=== PATIENT | female | born 1980 | race Two or more races ===

== ENCOUNTER → 2022-01-14 08:10 | Outpatient (CLI) | payer OTHER, SELFPAY ==
--- NOTE | 2022-01-14 08:21 | MM_ITS ---
PROCEDURE INFORMATION: Exam: MG Bilateral Screening 3D Mammography Exam date and time: 01/14/2022 8:27 AM Age: 41 years old Clinical indication: Baseline screening mammogram TECHNIQUE: Imaging protocol: Bilateral Screening tomosynthesis and 2D mammography including computer-aided detection (CAD) when performed. COMPARISON: No relevant prior studies available. FINDINGS: MAMMOGRAPHY: Breast composition: The breast is heterogeneously dense, which may obscure small masses. Mass: None. Architectural distortion: No new or suspicious architectural distortion. Calcifications: No new or suspicious calcifications are present Asymmetric density: No new or suspicious asymmetric density is present Skin thickening: None. Axillary adenopathy: None. IMPRESSION: No mammographic evidence of malignancy. Recommend annual screening mammography unless otherwise clinically indicated. ASSESSMENT: BI-RADS category 1: Negative
--- NOTE | 2022-01-14 08:22 | US_ITS ---
FINAL REPORT CLINICAL HISTORY: ELEVATED EFT FINDINGS: Sonographic images of the right upper quadrant were obtained. The pancreas is partially obscured.The liver has an unremarkable appearance. The patient is status post cholecystectomy. The common duct measures 7mm, may represent post cholecystectomy change. Limited images of the right kidney are unremarkable. IMPRESSION: Common duct measures 7 mm, may represent post cholecystectomy change. Reviewed, Interpreted and Dictated by Sriram Rod III, MD Transcribed by Jenae Yusuf Authenticated and [facility]
== END ==
PROVIDERS: PCP Nurse Practitioner Family; Visit Provider Nurse Practitioner Family
DX: Z12.31 Encounter for screening mammogram for malignant neoplasm of breast (principal); R74.8 Abnormal levels of other serum enzymes
CPT/HCPCS: 76705; 77063; 77067

== ENCOUNTER 2022-07-05 17:38 | Emergency (ER) | payer SELFPAY ==
[2022-07-05 17:38] VITALS: BP 131/80; PULSE 84; RESP 18; TEMP 37; O2SAT 99; BMI 41.5
--- NOTE | 2022-07-05 17:45 | ECG_ITS ---
APPROVED REPORT Exam: Resting ECG HR:79 bpm ECG Measurements Heart Rate 79 AXES OH 148 P 39 QRSd 93 QRS 47 QT 341 T 20 QTc 376 Conclusion SINUS RHYTHM NORMAL ECG UNCONFIRMED REPORT Electronically signed by : Dusty Nelson MD 07/06/2022 12:52:59
--- NOTE | 2022-07-05 17:45 | XR_ITS ---
PROCEDURE INFORMATION: Exam: XR Chest Exam date and time: 07/05/2022 6:10 PM Age: 42 years old Clinical indication: Pain; Angina pectoris; Additional info: Chest pain TECHNIQUE: Imaging protocol: Radiologic exam of the chest. Views: 1 view. COMPARISON: No relevant prior studies available. FINDINGS: Lungs: Unremarkable. No consolidation. Pleural spaces: Unremarkable. No pleural effusion. No pneumothorax. Heart/Mediastinum: Unremarkable. No cardiomegaly. Bones/joints: Unremarkable. IMPRESSION: No acute findings.
--- NOTE | 2022-07-05 17:45 | [facility].EDCP ---
Discharge Plan Disposition Chief Complaint: Chest Pain Referrals Follow up/Referrals: Cally Bansal APRN [Primary Care Provider] - See instructions Activity Restrictions/Add. Instructions Additional Instructions/Restrictions: Your work-up today in the emergency department did not show any dangerous abnormalities. I believe that your chest pain is due to costochondritis. This will improve on its own. However if you take ibuprofen you may improve faster. There is no evidence of heart attack today. There is no evidence of blood clot today. Your palpitations are secondary to something called PVC. These are not dangerous. I believe that if you reduce your caffeine intake you may have fewer PVCs. Please follow-up with your primary care doctor in about 2 to 3 days. Return to the emergency department immediately if you feel worse in any way. Clinical Impressions Clinical Impression: Acute costochondritis, Premature ventricular contraction, Atypical chest pain Instructions Patient Instructions: DI for Atypical Chest Pain, DI for Costochondritis Discharge ED Provider: Wilian Burnett Chest Pain HPI General Chief Complaint: Chest Pain Stated Complaint: CP Time Seen by Provider: 07/05/22 17:40 Mode of Arrival: Family Vehicle Source of Information: Patient History of Present Illness HPI narrative: The patient presents to the emergency department complaining of a 2-day history of constant chest pain. She also mentions some intermittent palpitations (skipped heartbeats). She admits to drinking coffee. She denies any radiation of the chest pain. She denies diaphoresis. She denies shortness of breath. MD complaint: chest pain YOAV Score for Non-Stemi Age of Patient: 40-49 years old Heart Rate: 70-89 bpm Systolic Blood Pressure: 120-139 mmhg Serum Creatinine: 0.40-0.79 mg/dl CHF Killip Class: I-No CHF Other Risk Factors: None Non-Stemi Risk Score: 72 Related Data Allergies Allergy/AdvReac Type Severity Reaction Status Date / Time INGREDIENT: NO KNOWN - NO Allergy Unknown Uncoded 03/03/17 15:05 KNOWN DRUG ALLERGY [facility] Disclaimer: The information contained in this section may have been updated after the patient was seen, as this information can be updated by other users. Surgical History (Updated 07/05/22 @ 17:51 by Neisha Castro RN) H/O section History of cholecystectomy Family History (Updated 07/05/22 @ 17:51 by Neisha Castro RN) Other No significant family history Social History (Updated 07/05/22 @ 17:51 by Neisha Castro RN) Smoking Status: Never smoker alcohol intake: never current occupational status: employed Travel in the last 8 weeks: None ROS Obtained: Yes All systems reviewed & no additional complaints except as documented Physical Exam General General appearance: alert Head Head exam: atraumatic Eye Eye exam: Present normal appearance ENT ENT exam: Present normal exam Neck Neck exam: Present normal inspection and full ROM; Absent tenderness or meningismus Chest Chest inspection: Present normal inspection, symmetric chest wall rise and tenderness (There is reproducible tenderness on the left costochondral junction. There is tenderness reproduces the patient's chief complaint.) Respiratory Respiratory exam: Present normal lung sounds bilaterally; Absent respiratory distress or accessory muscle use Cardiovascular Cardiovascular exam: Present regular rate, normal rhythm and normal heart sounds Abdominal Exam Abdominal exam: Present soft and normal bowel sounds; Absent distention, tenderness, heel tap sign, Aviles's sign, Rovsing's sign, tenderness at McBurney's Point or mass Extremities Exam Extremities exam: Present normal inspection and full ROM; Absent calf tenderness Back Exam Back exam: Present normal inspection; Absent CVA tenderness (R) or CVA tenderness (L) Neurological Exam Neurological exam: Present alert and oriented X3 Psychiatric Psychia
--- NOTE | 2022-07-05 17:46 | PC.NURSE ---
1743 DR BOSTON AT BEDSIDE
--- NOTE | 2022-07-05 17:57 | PC.NURSE ---
XR AT BEDSIDE
[2022-07-05 17:59] LABS: Basophils # 0.1 K/mm3 (0-0.2); Basophils % 0.4 % (0.1-2.0); Eosinophils # 0.3 K/mm3 (0.0-0.4); Hematocrit 46.1 % (37.0-47.0); Hemoglobin 15.1 g/dL (12.2-16.2); Lymphocytes # 3.3 K/mm3 (0.7-4.5); Lymphocytes % 26.8 % (10-50); Mean Corpuscular HGB Conc 32.6 g/dL (31.8-35.4); Mean Corpuscular Hemoglobin 28.8 pg (27.0-31.2); Mean Corpuscular Volume 88.2 fl (81-99); Mean Platelet Volume 10.1 fl (7.4-10.4); Monocytes # 0.5 K/mm3 (0.1-1.0); Monocytes % 4.2 % (1.7-9.3); Neutrophils # 8.3 K/mm3 (1.8-7.8); Neutrophils % 66.6 % (37.0-80.0); Platelet Count 215 K/mm3 (142-424); Red Blood Count 5.23 M/mm3 (4.20-5.40); Red Cell Distribution Width 13.9 % (11.5-17.5); White Blood Count 12.4 K/mm3 (4.8-10.8)
--- NOTE | 2022-07-05 18:00 | PC.NURSE ---
PT ASSISTED TO BR
[2022-07-05 18:04] LABS: Alanine Aminotransferase 29 U/L (12-78); Albumin Level 4.5 g/dl (3.5-5.0); Albumin/Globulin Ratio 1.3 (1.1-1.8); Alkaline Phosphatase 59 U/L (38-126); Anion Gap 9.5 mEq/L (5-15); Aspartate Amino Transferase 37 U/L (14-36); Bilirubin,Total 0.6 mg/dl (0.2-1.3); Blood Urea Nitrogen 8 mg/dl (7-17); Calcium 9.1 mg/dl (8.4-10.2); Carbon Dioxide 27 mmol/L (22.0-30.0); Chloride 104 mmol/L (98-107); Creatinine Clearance Estimated 80 mL/min (50-200); Estimated Glomerular Filt Rate 92 ml/min (>60); GFR (African American) 112 ML/MIN (>60); Globulin 3.5 g/dL (1.3-3.2); Glucose 117 mg/dl (74-100); Magnesium 1.9 mg/dl (1.6-2.3); Potassium 3.5 mmoL/L (3.5-5.1); Sodium 137 mmol/L (136-145)
--- NOTE | 2022-07-05 18:15 | PC.NURSE ---
ROUNDED ON PT AT THIS TIME, NO NEEDS. AT BEDSIDE, CALL LIGHT WITHIN REACH
[2022-07-05 18:20] LABS: Troponin I < 0.01 ng/ml (0.00-0.034)
[2022-07-05 18:29] VITALS: BP 118/73; PULSE 75; RESP 17; TEMP 37; O2SAT 97
--- NOTE | 2022-07-05 18:29 | PC.NURSE ---
DR BOSTON AT BEDSIDE TO UPDATE PT ON POC
== END 2022-07-05 18:41 | disposition home or self-care (01) ==
PROVIDERS: Emergency Provider Emergency Medicine; PCP Nurse Practitioner Family
DX: R07.89 Other chest pain (principal); I49.3 Ventricular premature depolarization; M94.0 Chondrocostal junction syndrome [Tietze]
CPT/HCPCS: 71045; 80053; 83735; 84484; 85025; 93005; 99285